=== PATIENT | female | born 1990 | race African-American/Black ===

== ENCOUNTER 2019-10-30 01:20 | Emergency (ER) | payer OTHER ==
[~2019-10-30] VITALS: Ht 157.5 cm; Wt 87.3 kg
[2019-10-30] MEDS ORDERED: MULTCAP PO (02:03)
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
[2019-10-30] MEDS ORDERED: NORCO, ANEXSIA 5/325MG TABLET (HYDROcodone/ACETAMINOPHEN) PO ONE (04:00)
[2019-10-30 04:33] VITALS: BP 118/75
== END 2019-10-30 04:37 | disposition home or self-care (01) ==
LOC: M ED 01:20
DX: S01.01XA Laceration without foreign body of scalp, initial encounter (principal); Y04.8XXA Assault by other bodily force, initial encounter; Y07.01 Husband, perpetrator of maltreatment and neglect; Y92.009 Unspecified place in unspecified non-institutional (private) residence as the place of occurrence of the external cause; Y93.9 Activity, unspecified; Y99.9 Unspecified external cause status

== ENCOUNTER → 2021-07-09 | Outpatient (REF) | payer OTHER ==
[~2021-07-09] MED LIST: MULTCAP PO
[2021-07-09 16:30] LABS: RSV AMPLIFICATION NEGATIVE (NEGATIVE)
== END ==
LOC: M WUC 15:41
PROVIDERS: ATTEND Physician Assistant
DX: J06.9 Acute upper respiratory infection, unspecified (principal)